=== PATIENT | female | born 1990 | race Caucasian/White ===

== ENCOUNTER 2018-09-02 18:49 | Emergency (ER) | payer SELFPAY ==
[~2018-09-02] VITALS: Ht 165.1 cm; Wt 82.0 kg
[2018-09-02 20:17] VITALS: BP 128/83
[2018-09-02] MEDS ORDERED: ACETAMINOPHEN 325MG TABLET PO ONE (21:00)
== END 2018-09-02 22:00 | disposition home or self-care (01) ==
LOC: ER 21:50
DX: O99.89 Other specified diseases and conditions complicating pregnancy, childbirth and the puerperium (principal); M79.641 Pain in right hand; M79.89 Other specified soft tissue disorders; R03.0 Elevated blood-pressure reading, without diagnosis of hypertension; Z3A.01 Less than 8 weeks gestation of pregnancy
CPT/HCPCS: 81025; 99283